=== PATIENT | female | born 1975 | race Caucasian/White ===

== ENCOUNTER 2018-02-28 03:38 | Emergency (ER) | payer BC ==
[~2018-02-28] VITALS: Ht 157.5 cm; Wt 63.0 kg
[2018-02-28 03:50] VITALS: BP 118/77
[2018-02-28] MEDS ORDERED: NAPR-56 PO (04:55)
[2018-02-28] MEDS ORDERED: CYCL-1 PO (04:57)
[2018-02-28] MEDS ORDERED: cyclobenzaprine 10mg tablet PO ONE (05:15)
[2018-02-28] MEDS ORDERED: naproxen 500mg tablet PO ONE (05:15)
== END 2018-02-28 05:20 | disposition home or self-care (01) ==
LOC: ER 03:39
DX: M54.42 Lumbago with sciatica, left side (principal); Z88.0 Allergy status to penicillin; Z88.5 Allergy status to narcotic agent; Z79.899 Other long term (current) drug therapy; W07.XXXA Fall from chair, initial encounter; Y93.89 Activity, other specified; Y92.89 Other specified places as the place of occurrence of the external cause; Y99.8 Other external cause status
CPT/HCPCS: 99283